=== PATIENT | female | born 1990 | race Caucasian/White ===

== ENCOUNTER 2016-07-21 13:12 | Emergency (ER) | payer OTHER ==
[2016-07-21 13:43] VITALS: BMI 22.6
--- NOTE | 2016-07-21 14:10 | PDOC ---
History of Present Illness - General Chief Complaint: Injury Stated Complaint: FALL Time Seen by Provider: 07/21/16 14:10 History Source: Patient Exam Limitations: No Limitations - History of Present Illness Initial Comments: 25 yo F hx ovarian cysts presents s/p fall. She states that she has been feeling nauseous for the past two days, has not had much appetite, with dec PO intake. She states that when she eats, she gets severe nausea and mild abdominal pain. 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 She did not lose consciousness. At present, she c/o diffuse weakness. C-collar placed by EMS en route due to her fall. She c/o discomfort from the collar, as well as posterior neck pain. No arm pain, weakness, numbness. No other injuries. Past History - Past Medical History Allergies/Adverse Reactions: Allergies Allergy/AdvReac Type Severity Reaction Status Date / Time No Known Allergies Allergy Verified 07/21/16 13:32 Home Medications: Ambulatory Orders NK [No Known Home Medication] 07/21/16 Asthma: No Cancer: No Cardiac Disorders: No Diabetes: No HTN: No Seizures: No Thyroid Disease: No - Psycho/Social/Smoking Cessation Hx Anxiety: No Suicidal Ideation: No Smoking History: Never smoked Have you smoked in the past 12 months: No Information on smoking cessation initiated: No Hx Alcohol Use: No Drug/Substance Use Hx: No Substance Use Type: None Hx Substance Use Treatment: No Review of Systems - Review of Systems Able to Perform ROS?: Yes Comments:: GENERAL/CONSTITUTIONAL: No fever or chills. +Weakness. HEAD, EYES, EARS, NOSE AND THROAT: No change in vision. No ear pain or discharge. No sore throat. CARDIOVASCULAR: No chest pain or shortness of breath. RESPIRATORY: No cough, wheezing, or hemoptysis. GASTROINTESTINAL: No nausea, vomiting, diarrhea or constipation. GENITOURINARY: No dysuria, frequency, or change in urination. MUSCULOSKELETAL: No joint or muscle swelling or pain. No back pain. +Neck pain. SKIN: No rash NEUROLOGIC: No headache, vertigo, loss of consciousness, or change in strength/ sensation. ENDOCRINE: No increased thirst. No abnormal weight change. HEMATOLOGIC/LYMPHATIC: No anemia, easy bleeding, or history of blood clots. ALLERGIC/IMMUNOLOGIC: No hives or skin allergy. *Physical Exam - Vital Signs Last Vital Signs Temp Pulse Resp BP Pulse Ox 99.8 F H 94 H 18 108/74 100 07/21/16 13:15 07/21/16 13:15 07/21/16 13:15 07/21/16 13:15 07/21/16 13:15 - Physical Exam Comments: GENERAL: Awake, alert, and fully oriented, in no acute distress HEAD: No signs of trauma EYES: PERRLA, EOMI, sclera anicteric, conjunctiva clear ENT: Auricles normal inspection, hearing grossly normal, nares patent, oropharynx clear without exudates. Moist mucosa NECK: Normal ROM, supple, no lymphadenopathy, JVD, or masses LUNGS: Breath sounds equal, clear to auscultation bilaterally. No wheezes, and no crackles HEART: Regular rate and rhythm, normal S1 and S2, no murmurs, rubs or gallops ABDOMEN: Soft, nontender, normoactive bowel sounds. No guarding, no rebound. No masses EXTREMITIES: Normal range of motion, no edema. No clubbing or cyanosis. No cords , erythema, or tenderness NEUROLOGICAL: Cranial nerves II through XII grossly intact. Normal speech, normal gait SKIN: Warm, Dry, normal turgor, no rashes or lesions noted. SPINE: +Midline tenderness C4-7. C-collar in place. Remainder of spine with no midline tenderness. ED Treatment Course - LABORATORY CBC & Chemistry Diagram: 07/21/16 14:55 07/21/16 14:55 Medical Decision Making - Medical Decision Making 07/21/16 17:07 Discussion with patient at bedside. C-collar removed s/p negative CT. VS with low grade temp. Labs show elevated TBili, which may imply gallstones (this may explain the recent dec appetite, PO intake). Will obtain sono. Patient endorsed to Dr. Salgado- f/u tanna, reassess. *DC/Admit/Observation/Transfer Diagnosis at time of Disposition: Weakness - Discharge Dispostion Disposition: HOME Condition at time of disposition: Improved - Patient Instructions Printed Discharge Instructions: DI for Dehydration -- Adult Additional Instructions: Drink plenty of fluids and rest. Your bilirubin is slightly elevated at 1.8. Please bring this copy of the results to your doctor. - Post Discharge Activity Work/School Note: Back to Work
[2016-07-21] MEDS ORDERED: ONDANSETRON 4 MG/2 ML VIAL IVPUSH ONE (14:29)
[2016-07-21] MEDS ORDERED: SODIUM CHLORIDE 1,000 ML IV STA (14:29)
[2016-07-21] MEDS ORDERED: ONDANSETRON 4 MG/2 ML VIAL ONE (15:02)
[2016-07-21 15:03] LABS: BASOPHIL 0.1 % (0-2.0); MCH 30.4 pg (25.7-33.7); MCHC 34.6 g/dl (32.0-36.0); MEAN CELL VOLUME 88.1 fl (80-96); NEUTROPHILS 89.5 % (42.8-82.8); PLATELET COUNT 153 K/MM3 (134-434); RDW 13.3 % (11.6-15.6)
[2016-07-21 15:26] LABS: ALK PHOS 82 U/L (45-117); ANION GAP 10 (8-16); BILIRUBIN,TOTAL 1.8 mg/dL (0.2-1.0); CALCIUM 8.5 mg/dL (8.5-10.1); CO2 26 mmol/L (21-32); COCKROFT - GAULT 124.2275; CREATININE 0.6 mg/dL (0.55-1.02); GLUCOSE,RANDOM 89 mg/dL (74-106); SGOT/AST 11 U/L (15-37); SGPT/ALT 10 U/L (12-78); TOT PROT 7.5 g/dl (6.4-8.2)
[2016-07-21] MEDS ORDERED: KETOROLAC TROMETHAMINE 30 MG/1 ML VIAL IVPUSH ONE (17:01)
[2016-07-21] MEDS ORDERED: KETOROLAC TROMETHAMINE 30 MG/1 ML VIAL ONE (17:02)
[2016-07-21 17:52] LABS: URINE APPEARANCE CLEAR; URINE BILIRUBIN NEGATIVE (NEGATIVE); URINE COLOR STRAW; URINE GLUCOSE (UA) NEGATIVE (NEGATIVE); URINE KETONE TRACE (NEGATIVE); URINE LEUK ESTERASE NEGATIVE (NEGATIVE); URINE NITRITE NEGATIVE (NEGATIVE); URINE PROTEIN NEGATIVE (NEGATIVE); URINE UROBILINOGEN NEGATIVE E.U./dl (0.2-1.0)
[2016-07-21 17:56] LABS: URINE BLOOD 1+ (NEGATIVE)
[2016-07-21 19:13] LABS: URINE MUCUS RARE; URINE RBC 7 /hpf (0-3); URINE WBC 2 /hpf (3-5)
--- NOTE | 2016-07-21 19:39 | PDOC ---
*Physical Exam - Vital Signs Last Vital Signs Temp Pulse Resp BP Pulse Ox 99.1 F 107 H 19 106/61 97 07/21/16 17:15 07/21/16 17:15 07/21/16 17:15 07/21/16 17:15 07/21/16 17:15 ED Treatment Course - LABORATORY CBC & Chemistry Diagram: 07/21/16 14:55 07/21/16 14:55 - ADDITIONAL ORDERS Additional order review: Laboratory Results 07/21/16 07/21/16 14:55 14:55 Sodium 139 Potassium 3.7 Chloride 103 Carbon Dioxide 26 Anion Gap 10 BUN 17 D Creatinine 0.6 Creat Clearance w eGFR > 60 Random Glucose 89 Calcium 8.5 Total Bilirubin 1.8 H D AST 11 L D ALT 10 L D Alkaline Phosphatase 82 D Total Protein 7.5 Albumin 4.0 D Serum , Qual Negative Urine Color Straw Urine Appearance Clear Urine pH 5.0 D Ur Specific [place] 1.011 Urine Protein Negative Urine Glucose (UA) Negative Urine Ketones Trace H Urine Blood 1+ H Urine Nitrite Negative Urine Bilirubin Negative Urine Urobilinogen Negative Ur Leukocyte Esterase Negative Urine RBC 7 Urine WBC 2 Ur Epithelial Cells Rare Urine Mucus Rare 07/21/16 14:45 Influenza Types A,B Antigen ([facility]) - Final Nasopharyngeal Swab - Final 07/21/16 14:55 RBC 4.40 D MCV 88.1 MCHC 34.6 RDW 13.3 D MPV 9.0 Neutrophils % 89.5 H Lymphocytes % 7.3 L D Monocytes % 3.1 L Eosinophils % 0.0 D Basophils % 0.1 - Medications Given in the ED: ED Medications Discontinued Medications Generic Name Dose Route Start Last Admin Trade Name Frantz PRN Reason Stop Dose Admin Sodium Chloride 1,000 mls @ 1,000 mls/hr 07/21/16 14:29 07/21/16 15:05 Normal Saline - IV 07/21/16 15:28 1,000 mls/hr ASDIR STA Administration Ketorolac Tromethamine 30 mg 07/21/16 17:01 07/21/16 17:05 Toradol Injection - IVPUSH 07/21/16 17:02 30 mg ONCE ONE Administration Ondansetron HCl 4 mg 07/21/16 14:29 07/21/16 15:05 Zofran Injection IVPUSH 07/21/16 14:30 4 mg ONCE ONE Administration Medical Decision Making - Medical Decision Making 07/21/16 19:36 Sign-out received from outgoing Emergency Physician Dr. Rhodes Pt interviewed and examined Ancillary studies reviewed Case discussed in detail with oncoming Emergency Physician including history, physical exam and ancillary studies. CBC, BMP 07/21/16 14:55 07/21/16 14:55 CMP Sodium 139 mmol/L (136-145) 07/21/16 14:55 Potassium 3.7 mmol/L (3.5-5.1) 07/21/16 14:55 Chloride 103 mmol/L (98-107) 07/21/16 14:55 Carbon Dioxide 26 mmol/L (21-32) 07/21/16 14:55 Anion Gap 10 (8-16) 07/21/16 14:55 BUN 17 mg/dL (7-18) D 07/21/16 14:55 Creatinine 0.6 mg/dL (0.55-1.02) 07/21/16 14:55 Creat Clearance w eGFR > 60 (>60) 07/21/16 14:55 Random Glucose 89 mg/dL (74-106) 07/21/16 14:55 Calcium 8.5 mg/dL (8.5-10.1) 07/21/16 14:55 Total Bilirubin 1.8 mg/dL (0.2-1.0) H D 07/21/16 14:55 AST 11 U/L (15-37) L D 07/21/16 14:55 ALT 10 U/L (12-78) L D 07/21/16 14:55 Alkaline Phosphatase 82 U/L (45-117) D 07/21/16 14:55 Total Protein 7.5 g/dl (6.4-8.2) 07/21/16 14:55 Albumin 4.0 g/dl (3.4-5.0) D 07/21/16 14:55 Serum , Qual Negative 07/21/16 14:55 Urine Test Results Urine Color Straw 07/21/16 14:55 Urine Appearance Clear 07/21/16 14:55 Urine pH 5.0 (5.0-8.0) D 07/21/16 14:55 Ur Specific [place] 1.011 (1.001-1.035) 07/21/16 14:55 Urine Protein Negative (NEGATIVE) 07/21/16 14:55 Urine Glucose (UA) Negative (NEGATIVE) 07/21/16 14:55 Urine Ketones Trace (NEGATIVE) H 07/21/16 14:55 Urine Blood 1+ (NEGATIVE) H 07/21/16 14:55 Urine Nitrite Negative (NEGATIVE) 07/21/16 14:55 Urine Bilirubin Negative (NEGATIVE) 07/21/16 14:55 Ur Leukocyte Esterase Negative (NEGATIVE) 07/21/16 14:55 Urine RBC 7 /hpf (0-3) 07/21/16 14:55 Urine WBC 2 /hpf (3-5) 07/21/16 14:55 Ur Epithelial Cells Rare /hpf (FEW) 07/21/16 14:55 Urine Mucus Rare 07/21/16 14:55 Abdominal ultrasound and cervical spine CT reviewed. No acute bony. Patient is reassessed. She reports feeling well like to go home. She denies any symptoms at this time. I discussed the physical exam findings, ancillary test results and final diagnoses with the patient. I answered all of the patient's questions. The patient was satisfied with the care received and felt comfortable with the discharge plan and treatment plan. The patient will call their primary care physician within 24 hours to arrange follow-up and will return to the Emergency Department with any new, persistant or worsening symptoms. *DC/Admit/Observation/Transfer Diagnosis at time of Disposition: Weakness - Discharge Dispostion Disposition: HOME Condition at time of disposition: Improved Admit: No - Patient Instructions Printed Discharge Instructions: DI for Dehydration -- Adult Additional Instructions: Drink plenty of fluids and rest. Your bilirubin is slightly elevated at 1.8. Please bring this copy of the results to your doctor. - Post Discharge Activity Work/School Note: Back to Work
[2016-07-21 22:33] VITALS: BP 109/66; PULSE 80; TEMP 99
== END 2016-07-21 21:14 | disposition home or self-care (01) ==
LOC: JER 13:12
PROC: 3E0333Z Introduction of Anti-inflammatory into Peripheral Vein, Percutaneous Approach (ICD-10-PCS; principal; 2016-07-21)
PROC: 3E033GC Introduction of Other Therapeutic Substance into Peripheral Vein, Percutaneous Approach (ICD-10-PCS; 2016-07-21)
DX: R53.1 Weakness (principal); S19.80XA Other specified injuries of unspecified part of neck, initial encounter; W01.198A Fall on same level from slipping, tripping and stumbling with subsequent striking against other object, initial encounter; Y93.89 Activity, other specified; Y92.512 Supermarket, store or market as the place of occurrence of the external cause; Y99.0 Civilian activity done for income or pay; R17 Unspecified jaundice
CPT/HCPCS: 36415; 72125-TC; 76705-TC; 80053; 81003; 81015; 84703; 85025; 87086; 87804; 99283-25

== ENCOUNTER 2022-04-12 21:09 | Emergency (ER) | payer OTHER ==
[2022-04-12 21:19] VITALS: BP 108/72; PULSE 86; RESP 17; TEMP 98.4; BMI 31.4
[2022-04-12 23:41] LABS: BASO % 0.6 % (0-2.0); HEMOGLOBIN 12.4 GM/dL (10.7-15.3); LYMPH % 27.6 % (8-40); MCH 29.6 pg (25.7-33.7); MCHC 33.4 g/dl (32.0-36.0); MEAN CELL VOLUME 88.5 fl (80-96); MEAN PLT VOLUME 8.3 fl (7.5-11.1); MONO % 5.2 % (3.8-10.2); NEUT % 65.6 % (42.8-82.8); PLATELET COUNT 239 10^3/uL (134-434); RBC 4.18 M/mm3 (3.60-5.2); RDW 13.5 % (11.6-15.6); WHITE BLOOD COUNT 10.3 K/mm3 (4.0-10.0)
[2022-04-12] MEDS ORDERED: ACETAMINOPHEN 1000 MG/100 ML BAG IVPB ONE (23:44)
[2022-04-12] MEDS ORDERED: ACETAMINOPHEN INJECTION 100 ML IVPB ONE (23:48)
[2022-04-13 00:14] LABS: ALBUMIN 3.6 g/dl (3.4-5.0); BLOOD UREA NITROGEN 13.2 mg/dL (7-18); CALCIUM 8.8 mg/dL (8.5-10.1); MAGNESIUM 2.3 mg/dL (1.8-2.4)
[2022-04-13 00:17] LABS: CREATININE 0.7 mg/dL (0.55-1.3)
[2022-04-13 00:19] LABS: BILIRUBIN,TOTAL 0.4 mg/dL (0.2-1); TOT PROT 7.4 g/dl (6.4-8.2)
[2022-04-13 00:35] LABS: PH,URINE 6.5 (5.0-8.0); URINE APPEARANCE CLEAR; URINE BILIRUBIN NEGATIVE (NEGATIVE); URINE COLOR YELLOW; URINE GLUCOSE (UA) NEGATIVE (NEGATIVE); URINE KETONE NEGATIVE (NEGATIVE); URINE LEUK ESTERASE NEGATIVE (NEGATIVE); URINE NITRITE NEGATIVE (NEGATIVE); URINE PROTEIN NEGATIVE (NEGATIVE); URINE UROBILINOGEN 0.2 mg/dL (0.2-1.0)
== END 2022-04-13 04:32 | disposition home or self-care (01) ==
LOC: JER 21:09
PROC: 3E033GC Introduction of Other Therapeutic Substance into Peripheral Vein, Percutaneous Approach (ICD-10-PCS; principal; 2022-04-12)
DX: O26.891 Other specified pregnancy related conditions, first trimester (principal); R10.11 Right upper quadrant pain; Z3A.01 Less than 8 weeks gestation of pregnancy
CPT/HCPCS: 0241U-QW; 36415; 76705-TC; 76817-TC; 80053; 81003; 83735; 84702; 85025; 86850; 86900; 86901; 87086; 87186; 99284-25

== ENCOUNTER 2022-05-01 19:33 | Emergency (ER) | payer OTHER ==
[2022-05-01 19:41] VITALS: BP 124/73; PULSE 85; RESP 17; TEMP 98.6; BMI 31.1
[2022-05-01 20:49] LABS: BASO % 0.3 % (0-2.0); EOS % 0.6 % (0-4.5); HEMATOCRIT 35.9 % (32.4-45.2); HEMOGLOBIN 12.2 GM/dL (10.7-15.3); LYMPH % 24.7 % (8-40); MCH 30.1 pg (25.7-33.7); MCHC 33.9 g/dl (32.0-36.0); MEAN CELL VOLUME 88.8 fl (80-96); MEAN PLT VOLUME 8.1 fl (7.5-11.1); MONO % 3.3 % (3.8-10.2); NEUT % 71.1 % (42.8-82.8); PLATELET COUNT 232 10^3/uL (134-434); RBC 4.04 M/mm3 (3.60-5.2); WHITE BLOOD COUNT 9.5 K/mm3 (4.0-10.0)
[2022-05-01 20:53] LABS: URINE APPEARANCE CLOUDY; URINE BILIRUBIN NEGATIVE (NEGATIVE); URINE COLOR YELLOW; URINE GLUCOSE (UA) NEGATIVE (NEGATIVE); URINE KETONE NEGATIVE (NEGATIVE); URINE LEUK ESTERASE NEGATIVE (NEGATIVE); URINE NITRITE NEGATIVE (NEGATIVE); URINE PROTEIN NEGATIVE (NEGATIVE); URINE UROBILINOGEN 0.2 mg/dL (0.2-1.0)
[2022-05-01 20:59] LABS: INR 1.04 (0.83-1.09)
[2022-05-01 21:02] LABS: ACTIVATED PTT 29.6 SECONDS (25.2-36.5)
[2022-05-01] MEDS ORDERED: ACETAMINOPHEN 500 MG TABLET (FP) PO ONE (21:55)
[2022-05-01] MEDS ORDERED: ACETAMINOPHEN 500 MG TABLET (FP) ONE (23:33)
== END 2022-05-01 23:49 | disposition home or self-care (01) ==
LOC: JER 19:33
DX: O20.9 Hemorrhage in early pregnancy, unspecified (principal); O41.8X10 Other specified disorders of amniotic fluid and membranes, first trimester, not applicable or unspecified; Z3A.08 8 weeks gestation of pregnancy
CPT/HCPCS: 36415; 76801-TC; 81003; 84702; 85025; 85610; 85730; 87086; 99284-25

== ENCOUNTER 2022-06-09 14:22 | Emergency (ER) | payer OTHER ==
[2022-06-09 14:35] VITALS: BMI 29.6
[2022-06-09] MEDS ORDERED: SODIUM CHLORIDE 0.9% 500 ML INFUS.BAG IV ONE (15:31)
[2022-06-09] MEDS ORDERED: ONDANSETRON 4 MG/2 ML VIAL IVPUSH ONE (15:31)
[2022-06-09] MEDS ORDERED: ACETAMINOPHEN 1000 MG/100 ML BAG IVPB ONE (15:39)
[2022-06-09] MEDS ORDERED: ONDANSETRON 4 MG/2 ML VIAL ONE (15:44)
[2022-06-09] MEDS ORDERED: ACETAMINOPHEN INJECTION 100 ML IVPB ONE (15:44)
[2022-06-09 16:07] LABS: BASO % 0.1 % (0-2.0); HEMATOCRIT 38.1 % (32.4-45.2); HEMOGLOBIN 12.8 GM/dL (10.7-15.3); LYMPH % 8.6 % (8-40); MCH 29.2 pg (25.7-33.7); MCHC 33.6 g/dl (32.0-36.0); MEAN PLT VOLUME 8.7 fl (7.5-11.1); MONO % 2.8 % (3.8-10.2); NEUT % 88.5 % (42.8-82.8); PLATELET COUNT 182 10^3/uL (134-434); RBC 4.38 M/mm3 (3.60-5.2); RDW 13.4 % (11.6-15.6); WHITE BLOOD COUNT 8.2 K/mm3 (4.0-10.0)
[2022-06-09 16:12] LABS: URINE APPEARANCE CLEAR; URINE BILIRUBIN NEGATIVE (NEGATIVE); URINE COLOR YELLOW; URINE GLUCOSE (UA) NEGATIVE (NEGATIVE); URINE KETONE TRACE (NEGATIVE); URINE LEUK ESTERASE NEGATIVE (NEGATIVE); URINE NITRITE NEGATIVE (NEGATIVE); URINE PROTEIN TRACE (NEGATIVE)
[2022-06-09 16:31] LABS: CALCIUM 8.8 mg/dL (8.5-10.1)
[2022-06-09 16:32] LABS: ALBUMIN 3.5 g/dl (3.4-5.0); BLOOD UREA NITROGEN 7.1 mg/dL (7-18); MAGNESIUM 1.9 mg/dL (1.8-2.4)
[2022-06-09 16:35] LABS: CREATININE 0.5 mg/dL (0.55-1.3)
[2022-06-09 16:36] LABS: TOT PROT 7.4 g/dl (6.4-8.2)
[2022-06-09] MEDS ORDERED: FAMOTIDINE 20 MG/50 ML IVPB 20 MG/50 ML MG IVPB ONE ×2 (17:09→17:25)
[2022-06-09] MEDS ORDERED: METOCLOPRAMIDE HCL INJECTION 10 MG/2 ML VIAL IVPUSH ONE (17:10)
[2022-06-09] MEDS ORDERED: MAGNESIUM SULF 50% (8.12 MEQ/2 ML-1 GM VIAL) IVPB ONE (17:10)
[2022-06-09] MEDS ORDERED: DEXTROSE 5%-NORMAL SALINE 1,000 ML IV ONE (17:13)
[2022-06-09] MEDS ORDERED: MAGNESIUM SULF 50% (8.12 MEQ/2 ML-1 GM VIAL) ONE (17:25)
[2022-06-09] MEDS ORDERED: METOCLOPRAMIDE HCL INJECTION 10 MG/2 ML VIAL ONE (17:25)
[2022-06-09 18:32] VITALS: BP 110/69; RESP 16; TEMP 97.9
[2022-06-09 19:16] VITALS: PULSE 88
== END 2022-06-09 19:24 | disposition home or self-care (01) ==
LOC: JER 14:22
PROC: 3E0333Z Introduction of Anti-inflammatory into Peripheral Vein, Percutaneous Approach (ICD-10-PCS; principal; 2022-06-09)
PROC: 3E033GC Introduction of Other Therapeutic Substance into Peripheral Vein, Percutaneous Approach (ICD-10-PCS; 2022-06-09)
PROC: 3E033GC Introduction of Other Therapeutic Substance into Peripheral Vein, Percutaneous Approach (ICD-10-PCS; 2022-06-09)
PROC: 3E033GC Introduction of Other Therapeutic Substance into Peripheral Vein, Percutaneous Approach (ICD-10-PCS; 2022-06-09)
PROC: 3E033GC Introduction of Other Therapeutic Substance into Peripheral Vein, Percutaneous Approach (ICD-10-PCS; 2022-06-09)
PROC: 3E033GC Introduction of Other Therapeutic Substance into Peripheral Vein, Percutaneous Approach (ICD-10-PCS; 2022-06-09)
DX: O98.511 Other viral diseases complicating pregnancy, first trimester (principal); U07.1 COVID-19; Z3A.12 12 weeks gestation of pregnancy
CPT/HCPCS: 0241U-QW; 36415; 76815; 80053; 81003; 83690; 83735; 84702; 85025; 86850; 86900; 86901; 87086; 93005; 93010; 99285-25

== ENCOUNTER 2022-12-11 07:42 | Inpatient (IN) | payer OTHER ==
[2022-12-11] MEDS ORDERED: AMPICILLIN SODIUM 2 GM VIAL ONE (08:21)
[2022-12-11 08:44] VITALS: RESP 18; BMI 31.2
[2022-12-11] MEDS ORDERED: AMPICILLIN - 2 GM in SODIUM CHLORIDE 100 ML IVPB ONE (09:06)
[2022-12-11] MEDS ORDERED: ELECTROLYTE-148 SOLN 1,000 ML IV SCH (09:15)
[2022-12-11] MEDS ORDERED: OXYTOCIN 30 UNITS in 0.9% NS 30 UNIT/500 ML INFUS.BAG IVPB SCH (09:15)
[2022-12-11 10:21] LABS: BASO % 0.3 % (0-2.0); EOS % 0.4 % (0-4.5); HEMATOCRIT 33.4 % (32.4-45.2); HEMOGLOBIN 11.4 GM/dL (10.7-15.3); LYMPH % 25.1 % (8-40); MCH 28.7 pg (25.7-33.7); MCHC 34.1 g/dl (32.0-36.0); MEAN PLT VOLUME 9.8 fl (7.5-11.1); MONO % 3.7 % (3.8-10.2); NEUT % 70.5 % (42.8-82.8); PLATELET COUNT 182 10^3/uL (134-434); RBC 3.98 M/mm3 (3.60-5.2); RDW 15.1 % (11.6-15.6); WHITE BLOOD COUNT 7.2 K/mm3 (4.0-10.0)
[2022-12-11 10:25] LABS: INR 0.95 (0.83-1.09)
[2022-12-11 10:28] LABS: ACTIVATED PTT 27.8 SECONDS (25.2-36.5)
[2022-12-11 10:38] LABS: POTASSIUM 3.9 mmol/L (3.5-5.1)
[2022-12-11 10:40] LABS: BLOOD UREA NITROGEN 8.4 mg/dL (7-18); CALCIUM 8.4 mg/dL (8.5-10.1)
[2022-12-11 10:43] LABS: CREATININE 0.7 mg/dL (0.55-1.3)
[2022-12-11] MEDS ORDERED: FENTANYL/BUPIVACAINE/NS/PF - PCEA - 50 ML DISP.SYRIN EP ONE (10:57)
[2022-12-11] MEDS ORDERED: BUPIVACAINE HCL/PF 0.25% (2.5MG/ML) 10 ML VIAL ONE (11:00)
[2022-12-11] MEDS ORDERED: NALOXONE HCL 0.4 MG/ML VIAL IVPUSH PRN (11:28)
[2022-12-11] MEDS ORDERED: FENTANYL/BUPIVACAINE/NS/PF - PCEA - 50 ML DISP.SYRIN EP SCH (11:30)
[2022-12-11] MEDS ORDERED: AMPICILLIN SODIUM 1 GM VIAL ONE (11:35)
[2022-12-11] MEDS: AMPICILLIN - 1 GM in SODIUM CHLORIDE 100 ML IVPB SCH ×2 (11:35→18:54)
[2022-12-11] MEDS ORDERED: OXYTOCIN 20 UNITS in 0.9% NS 20 UNIT/1,000 ML INFUS.BAG IV ONE (12:12)
[2022-12-11] MEDS ORDERED: BENZOCAINE 28 GM HEMORRHOIDAL OINTMENT TP PRN (12:56)
[2022-12-11] MEDS ORDERED: BENZOCAINE 20% 57 GM BOTTLE TP PRN (12:56)
[2022-12-11] MEDS ORDERED: ACETAMINOPHEN 325 MG TABLET (FP) PO PRN (12:56)
[2022-12-11] MEDS ORDERED: METHYLERGONOVINE MALEATE 0.2 MG/1 ML AMP IM PRN (12:56)
[2022-12-11] MEDS ORDERED: WITCH HAZEL 50% (TUCKS) 40 PAD/JAR PAD TP PRN (12:56)
[2022-12-11] MEDS ORDERED: BISACODYL 10 MG SUPP.RECT RC PRN (12:56)
[2022-12-11] MEDS ORDERED: OXYTOCIN 20 UNITS in 0.9% NS 20 UNIT/1,000 ML INFUS.BAG IV SCH (13:00)
[2022-12-11] MEDS ORDERED: IBUPROFEN 600 MG TABLET (FP) PO ONE (14:44)
[2022-12-11] MEDS: IBUPROFEN 600 MG TABLET (FP) PO PRN ×2 (20:05→23:48)
[2022-12-11] MEDS: oxyCODONE HCL 5 MG TABLET PO PRN (21:25)
[2022-12-12] MEDS: IBUPROFEN 600 MG TABLET (FP) PO PRN ×3 (04:47→20:29)
[2022-12-12 08:18] LABS: BASO % 0.2 % (0-2.0); EOS % 0.3 % (0-4.5); HEMOGLOBIN 9.8 GM/dL (10.7-15.3); LYMPH % 20.7 % (8-40); MCH 28.4 pg (25.7-33.7); MCHC 32.7 g/dl (32.0-36.0); MEAN CELL VOLUME 86.8 fl (80-96); MEAN PLT VOLUME 10.5 fl (7.5-11.1); MONO % 3.1 % (3.8-10.2); NEUT % 75.7 % (42.8-82.8); PLATELET COUNT 153 10^3/uL (134-434); RBC 3.46 M/mm3 (3.60-5.2); RDW 14.8 % (11.6-15.6); WHITE BLOOD COUNT 9.6 K/mm3 (4.0-10.0)
[2022-12-12] MEDS: oxyCODONE HCL 5 MG TABLET PO PRN (09:21)
[2022-12-12] MEDS ORDERED: SENNOSIDES/DOCUSATE COMBO (SENNA PLUS) TABLET (UD) PO PRN (22:00)
[2022-12-13] MEDS: oxyCODONE HCL 5 MG TABLET PO PRN ×2 (00:39→06:28)
[2022-12-13 09:51] VITALS: BP 101/63; PULSE 77; TEMP 97.8
== END 2022-12-13 12:30 | disposition home or self-care (01) | DRG 807 ==
LOC: JLDR 07:42 → J3W 15:00
PROVIDERS: ADMIT Specialist; ATTEND Specialist
PROC: 10E0XZZ Delivery of Products of Conception, External Approach (ICD-10-PCS; principal; 2022-12-11)
DX: O69.1XX0 Labor and delivery complicated by cord around neck, with compression, not applicable or unspecified (principal); Z37.0 Single live birth; O99.824 Streptococcus B carrier state complicating childbirth; Z3A.39 39 weeks gestation of pregnancy
CPT/HCPCS: 36415; 80048; 85025; 85610; 85730; 86780; 86850; 86900; 86901

== ENCOUNTER 2023-05-30 04:12 | Day surgery (SDC) | payer OTHER ==
[2023-05-23 15:43] VITALS: BMI 32.0
[2023-05-30] MEDS ORDERED: CEFAZOLIN 2 GM in DEXTROSE 5%-WATER - 50 ML IVPB ONE (09:22)
[2023-05-30] MEDS ORDERED: ceFAZolin SODIUM 1 GM VIAL ONE ×3 (09:28→11:10)
[2023-05-30] MEDS ORDERED: LIDOCAINE HCL/PF 2% SDV 5ML VIAL ONE ×2 (10:06→10:20)
[2023-05-30] MEDS ORDERED: METOCLOPRAMIDE HCL INJECTION 10 MG/2 ML VIAL ONE (10:06)
[2023-05-30] MEDS ORDERED: ONDANSETRON 4 MG/2 ML VIAL ONE ×3 (10:06→14:47)
[2023-05-30] MEDS ORDERED: SUCCINYLCHOLINE CHLORIDE 200 MG/10 ML SYRINGE ONE ×2 (10:07→10:21)
[2023-05-30] MEDS ORDERED: MIDAZOLAM HCL 2 MG/2 ML SINGLE DOSE VIAL ONE ×2 (10:07→10:21)
[2023-05-30] MEDS ORDERED: ROCURONIUM BROMIDE 50 MG/5 ML SYRINGE ONE ×2 (10:08→10:10)
[2023-05-30] MEDS ORDERED: PROPOFOL 20 ML ONE (10:10)
[2023-05-30] MEDS ORDERED: oxyCODONE HCL 5 MG TABLET PO PRN ×2 (10:15→12:36)
[2023-05-30] MEDS ORDERED: DEXAMETHASONE SOD PHOSPHATE 4 MG/1 ML VIAL ONE (11:10)
[2023-05-30] MEDS: ceFAZolin SODIUM 1 GM VIAL IVPB ONE ×2 (11:30)
[2023-05-30] MEDS ORDERED: SEVOFLURANE 250 ML BTL ONE (11:55)
[2023-05-30] MEDS ORDERED: NEOSTIGMINE METHYLSULFATE 0.5 MG/1 ML - 10 ML MDV ONE (12:09)
[2023-05-30] MEDS ORDERED: GLYCOPYRROLATE 0.2 MG/1 ML VIAL ONE (12:10)
[2023-05-30] MEDS ORDERED: KETOROLAC TROMETHAMINE 30 MG/1 ML VIAL ONE (12:10)
[2023-05-30] MEDS: ACETAMINOPHEN 1000 MG/100 ML BAG IVPB ONE (12:42)
[2023-05-30] MEDS ORDERED: LACTATED RINGERS SOLUTION 1,000 ML IV SCH (12:45)
[2023-05-30] MEDS: LACTATED RINGERS SOLUTION 1,000 ML IV SCH (13:40)
[2023-05-30 14:07] VITALS: RESP 18
[2023-05-30] MEDS: ONDANSETRON 4 MG/2 ML VIAL IVPUSH PRN (14:57)
[2023-05-30 15:05] VITALS: PULSE 70
[2023-05-30 16:02] VITALS: BP 102/56; TEMP 97.7
== END 2023-05-30 16:14 | disposition home or self-care (01) ==
LOC: JASU-SURG 04:12
PROVIDERS: ATTEND Specialist
PROC: 0UT74ZZ Resection of Bilateral Fallopian Tubes, Percutaneous Endoscopic Approach (ICD-10-PCS; principal; 2023-05-30 10:45)
DX: Z30.2 Encounter for sterilization (principal)
CPT/HCPCS: 81025; 88305-TC; 94760; J0131